=== PATIENT | female | born 1955 | race Caucasian/White ===

== ENCOUNTER 2020-03-24 08:30 | Day surgery (SDC) | payer MEDICARE ==
--- NOTE | 2020-03-18 16:57 | NUR ---
KHLOE WAS HERE TODAY TO PRE ADMIT FOR LT TKA ON 03/24/20. HE HAD HER RIGHT KNEE REPLACED IN 2018. SHE HAS A FOUR WHEELED WALKER THAT SHE WILL BRING THE DAY OF SURGERY. SHE HAS A WALK IN SHOWER BUT NO HAND HELD SHOWER HEAD. SHE REPORTS THAT THE TOILETS IN HER HOUSE ARE HIGHER THAN AVERAGE SO SHE DOESNT ANTICIPATE NEEDING A SEAT RISER. THERE ARE 2 STEPS LEADING UP TO HER HOUSE, SHE DOES HAVE STAIR IN HER HOUSE BUT SHE WILL BE STAYING ON THE BOTTOM FLOOR AND WILL NOT BE CLIMBING STAIRS INITIALLY. SHE HAS TWO DAUGHTERS THAT WILL BE TAKING HER HOME AND THEY WILL BE AVAILABLE TO TAKE HER TO POST OP APPOINTMENTS. SHE HAS MADE CONTACT WITH PHYSICAL THERAPY AND HAS SCHEDULED HER FIRST TWO APPOINTMENTS
[~2020-03-24] VITALS: Ht 165.1 cm; Wt 99.8 kg
[~2020-03-24 08:30] MED LIST: ACIDOPHILUS1 EACH PO; ATIVAN1 MG PO; CALCIUM-MAG-ZI1 EACH PO; CIPRO500 MG PO; CRANBERRY300 MG PO; DILAUDID4 MG PO; EFFEXOR XR150 MG PO; ESTER-C 1,0001 EACH PO; FISH OIL 1,0001 EAC1 PO; FLEXERIL5 MG PO; HYDROCODON-ACE1 EA11 PO; HYDROCODON-ACE1 EAC6 PO; LIPITOR10 MG PO; NORCO 7.5-3251 EACH PO; NORTRIPTYLINE H10 MG PO; PRILOSEC OTC20 MG PO; PRILOSEC20 MG PO; STOOL SOFTENER100 M1 PO; SUDAFED30 MG PO; TRIAMTERENE-HC1 EAC1 PO; TYLENOL EXTRA500 MG PO; ULTRAM50 MG PO; WOMEN'S ONE DA1 EACH PO; XARELTO10 MG PO; ZOLOFT100 MG PO
--- NOTE | 2020-03-24 09:30 | NUR ---
PATIENT IS UP TO THE BATHROOM. SHE AMBULATES WELL, WHILE PUSHING HER IV POLE. SHE IS BACK IN BED. KNEES OF STRETCHER ARE BENT FOR HER COMFORT. CALL LIGHT IS WITHIN REACH. NOZIN NASAL SWABS COMPLETE. CHG ORAL RINSE ALSO COMPLETE.
--- NOTE | 2020-03-24 10:36 | NUR ---
PT ALERT, ORIENTED AND SUPPORTED BY HER DAUGHTER GLENN. PT HAD HER R KNEE REPLACED IN 2018. PT SEEMS PREPARED, WAITING FOR GERRY REAVES. ALL QUESTIONS ASKED WERE ANSWERED, PT REQUESTED PRAYER, WILL FOLLOW NEEDED
[2020-03-24] MEDS ORDERED: DICLOFENAC SODI75 MG PO (12:35)
[2020-03-24] MEDS ORDERED: XARELTO10 MG PO (12:35)
[2020-03-24] MEDS ORDERED: GABAPENTIN300 MG PO (12:35)
[2020-03-24] MEDS ORDERED: OXYCODONE HCL5 MG PO (12:37)
--- NOTE | 2020-03-24 12:54 | NUR ---
03/24/20 1254 Geno Lindsay 1228 PT ARRIVED IN PACU SLEEPY WITH OPA IN PLACE. CHIN LIFT HELD TO KEEP AIRWAY OPEN. 1231 PT REACTIVE. OPA REMOVED. DENNISE HOSE PLACED ON L KNEE WITH MARIE DRSG CDI. GREEN LITE FLASING ON MARIE. ON QUE SET AT 4ML/HR FROM SURGERY. CRYO CUFF PLACED PER DR ORDERS. 1245 C/O FEELING COLD. WARM BLANKETS GIVEN. OXYGEN DROPPED TO 88% ON RA. ENCOURAGED COUGH, DEEP BREATHING. INCREASING SATS TO 94%.
--- NOTE | 2020-03-24 13:21 | NUR ---
SOUP AND SANDWICH ORDERED FROM DIETARY. ICED WATER GIVEN. DAUGHTER IS AT THE BEDSIDE. CALL LIGHT IS WITHIN REACH.
--- NOTE | 2020-03-24 14:02 | NUR ---
SOUP AND SANDWICH ARRIVES AND PATIENT IS SITTING UP IN BED, EATING. MORE ICED WATER GIVEN.
--- NOTE | 2020-03-24 14:35 | NUR ---
PATIENT FINISHES HER SOUP AND SANDWICH. PHYSICAL THERAPY, HIRO, IS HERE AND IN THE PATIENT'S ROOM.
--- NOTE | 2020-03-24 14:59 | NUR ---
PATIENT IS TAKEN OUT OF THIS DEPARTMENT VIA WHEELCHAIR WITH PHYSICAL THERAPIST, IHRO.
--- NOTE | 2020-03-24 15:09 | NUR ---
PATIENT RETURNS WITH HIRO. CALL TO DR CRISTINA REGARDING PATIENT'S STATUS AND HE GIVES A VERBAL ORDER FOR DISCHARGE. PATIENT IS UP TO THE BATHROOM WITH FWW AND SHE DOES WELL WITH THAT.
--- NOTE | 2020-03-24 15:55 | NUR ---
LE 1535: DISCHARGE INSTRUCTIONS ARE GIVEN AND PATIENT AND DAUGHTER VERBALIZE UNDERSTANDING. CRYO CUFF SENT WITH THE PATIENT. PATIENT TRANSFERS HERSELF TO WHEELCHAIR AND THEN TO PERSONAL VEHICLE AND SHE TOLERATES THAT WELL.
--- NOTE | 2020-03-26 10:20 | OR ---
[facility] [address] [facility] [place], [place] [address] Signed DATE OF OPERATION: 03/24/2020 SURGEON: Dhara Hernandez MD PREOPERATIVE DIAGNOSIS: Degenerative joint disease, left knee. POSTOPERATIVE DIAGNOSIS: Degenerative joint disease, left knee. PROCEDURE PERFORMED: Left total knee arthroplasty with Sergio. TELEVISION REPAIRER: SAIDA Alamo. ANESTHESIA: General. BLOOD LOSS: 175 mL. TOURNIQUET TIME: Zero. IMPLANTS: Mau Triathlon size 3 femur, 2 tibia, 11 mm insert, and 29 mm patella. BRIEF HISTORY: Shamir is a 64-year-old female with progressive worsening of osteoarthritis. This is nonresponsive to the means of treatment. Risks and benefits of operative treatment discussed with her. She elected to proceed. DESCRIPTION OF PROCEDURE: Once consent was obtained, she was taken to the operating room. After adequate anesthesia, she was placed on operating room table. A hip bump was placed. The leg was then prepped and draped in a standard sterile fashion. Standard anterior approach through a straight incision was taken through skin and subcutaneous tissue. A subvastus approach was taken through the fascia. We elevated the MCL around the posteromedial corner. The infrapatellar fat pad was excised. Anterior horns of menisci were Electronically Signed By: DHARA HERNANDEZ MD 03/26/20 1020 PATIENT NAME: SHAMIR HOGUE OPERATIVE REPORT DATE OF : 57 REPORT #: [id number] PHYSICIAN: DHARA HERNANDEZ MD PCP: EMILIE BUSTILLO PAC REPORT IS CONFIDENTIAL AND NOT TO BE RELEASED WITHOUT AUTHORIZATION [facility] [address] [place], [place] [address] Signed transected as was the ACL. The knee was flexed and the checkpoints for the Sergio system were installed on the medial femoral condyle and proximal tibia. The computer arrays for the femur were placed in the medial femoral condyle and the computer array for the tibia was placed percutaneously 1 handsbreadth below the tibial tubercle. This was done percutaneously. The leg was then registered with the computer and the fine checkpoints inside the knee were all registered with the computer. Once this was accomplished, brought in the Sergio robot and the straight cuts including the tibia anterior posterior cuts and the anterior chamfer were made. The bone fragments were removed. The saw was switched to the angled saw on the distal and posterior chamfer cuts were made. The remaining bone and osteophytes were removed. The posterior osteophytes of the femur were removed. No posterior release performed. The trials were then positioned. Knee was taken through range of motion and found to be stable. It was more stable with a 10 mm poly, then it was with a 9 mm poly and we left the 10 in position. The patella was cut sized and drilled for a 29 symmetric patella. The distal femoral drill holes were made and the tibia was finished using the keel punch. Due to the softness of bone, we elected to go with a hybrid prosthesis. The bone was pulse lavaged, packed with a dry Ray-Mily. The cement was mixed. When it reached proper consistency, it was placed on the patella and the tibia as well as 2 implants. The tibia was impacted into position, first followed by the polyethylene. The excess cement was removed. The femur was impacted in position. The knee was extended and nicely loaded. The patella was clamped into position, again any remaining overflow was removed. The cement was allowed to harden. Once it was hardened sufficiently, the knee was taken through range of motion and found to be quite stable. The On-Q pain pump was placed percutaneously into the adductor canal from the suprapatellar pouch. The wound was copiously irrigated throughout the procedure. A total of 3 L antibiotic irrigation was used. The periarticular soft tissues were injected with 98 mL ropivacaine and Toradol mixture. The arthrotomy was then closed using #1 Ethibond, #2 StrataFix. The subcutaneous tissue was closed using 0 Stratafix and the skin with nisreen. The 2 distal stab incisions were closed using Steri-Strips. The wound was dressed with a MARIE wound VAC dressing and Gorge wrap. She was awakened and taken to the recovery room in satisfactory condition. All sponge, needle, and instrument counts were correct. Dhara Hernandez MD BA/MODL /[id number] Electronically Signed By: DHARA HERNANDEZ MD 03/26/20 1020 PATIENT NAME: SHAMIR HOGUE OPERATIVE REPORT DATE OF : 57 REPORT #: [id number] PHYSICIAN: DHARA HERNANDEZ MD PCP: EMILIE BUSTILLO PAC REPORT IS CONFIDENTIAL AND NOT TO BE RELEASED WITHOUT AUTHORIZATION [address] [address] Signed Copies: ~ Electronically Signed By: DHARA HERNANDEZ MD 03/26/20 1020 PATIENT NAME: SHAMIR HOGUE OPERATIVE REPORT DATE OF : 57 REPORT #: [id number] PHYSICIAN: DHARA HERNANDEZ MD PCP: EMILIE BUSTILLO PAC REPORT IS CONFIDENTIAL AND NOT TO BE RELEASED WITHOUT AUTHORIZATION
== END 2020-03-24 15:40 | disposition home or self-care (01) ==
LOC: DS 08:30
PROVIDERS: ATTEND Specialist
PROC: 8E0YXBZ Computer Assisted Procedure of Lower Extremity (ICD-10-PCS; 2020-03-24)
PROC: 0SRD0J9 Replacement of Left Knee Joint with Synthetic Substitute, Cemented, Open Approach (ICD-10-PCS; principal; 2020-03-24 10:00)
DX: M17.12 Unilateral primary osteoarthritis, left knee (principal); M25.762 Osteophyte, left knee; I10 Essential (primary) hypertension; K21.9 Gastro-esophageal reflux disease without esophagitis; G89.29 Other chronic pain; M54.5 Low back pain; Z79.899 Other long term (current) drug therapy; Z87.891 Personal history of nicotine dependence; Z98.890 Other specified postprocedural states
CPT/HCPCS: 01402; 64447; 64448; 64450; 76942; 97110; 97116; 97161; C1713; C1776; J0690; J1100; J1885; J2001; J2250; J2405; J2704; J2795; J3010; J7121

== ENCOUNTER 2020-10-11 06:15 | Day surgery (SDC) | payer MEDICARE ==
[~2020-10-11] VITALS: Ht 165.1 cm; Wt 97.7 kg
[~2020-10-11 06:15] MED LIST changes: +DICLOFENAC SODI75 MG PO; +GABAPENTIN300 MG PO; +OXYCODONE HCL5 MG PO
--- NOTE | 2020-10-11 08:26 | NUR ---
10/11/20 0826 Geno Lindsay 0804 PT ARRIVED IN PACU SLEEPY WITH NO C/O'S. ABD SOFT. 0815 DR AT BEDSIDE TALKING TO PT. 0825 RESTING. REU.
--- NOTE | 2020-10-11 09:19 | NUR ---
PT IS ALERT, ORIENTED AND SUPPORTED BY HER DAUGHTER. PT SEEMS TO COPE WITH PREP APPROPRIATELY.ALL QUESTIONS ASKED ANSWERED. PT REQUESTED PRAYER, WILL FOLLOW NEEDED
--- NOTE | 2020-10-11 17:00 | OR ---
[facility] [address] [place], [place] [address] Signed DATE OF OPERATION: 10/11/2020 SURGEON: Adan Mitchell MD PREOPERATIVE DIAGNOSIS: Surveillance colonoscopy, asymptomatic, negative family history of colon cancer. POSTOPERATIVE DIAGNOSIS: Mild, diffuse inflammation with edema, no ulceration or neoplasm. PROCEDURE: Total colonoscopy to cecum with random biopsies. ANESTHESIA: Intravenous sedation, fentanyl 150 mcg ad Versed 8 mg. INDICATIONS: This 65-year-old white woman is a patient of BALAJI Walls. She is here for surveillance colonoscopy. She has undergone colonoscopy in [place] by a provider there at least several times in the past with no findings of concern. She currently has no symptoms of bleeding, diarrhea, or constipation and no family history of colon cancer. She has undergone prior bilateral total knee replacement and was given preoperative antibiotic Ancef prior to colonoscopy today. The risks of bleeding, infection, and perforation related to colonoscopy were reviewed with her, she understands and wished to proceed. FINDINGS: The prep was good. Complete colonoscopy was undertaken of the cecum. There was mild, diffuse inflammation and edema without signs of true colitis per se. This may be bowel prep related. Biopsies were taken throughout to assess for microscopic or lymphocytic colitis. DESCRIPTION OF PROCEDURE: The patient was brought to the endoscopy suite and placed in lateral decubitus position given intravenous sedation to the point of slurred speech and nystagmus. Digital rectal examination was normal. Full cardiopulmonary monitoring was maintained. An Olympus video colonoscope was passed into the rectum and manipulated throughout the colon, ultimately intubating the cecum. The ileocecal valve and appendiceal orifice were normal. Throughout the scope, the mucosa of the colon was somewhat edematous and Electronically Signed By: ADAN MITCHELL MD 10/11/20 1700 PATIENT NAME: SHAMIR HOGUE OPERATIVE REPORT DATE OF : 57 REPORT #: [id number] PHYSICIAN: ADAN MITCHELL MD PCP: EMILIE BUSTILLO PAC REPORT IS CONFIDENTIAL AND NOT TO BE RELEASED WITHOUT AUTHORIZATION [facility] [address] [place], [place] [address] Signed mildly inflamed without sign of ulceration or other stigmata of most types of colitis. The scope was carefully withdrawn. Biopsies taken of the cecum, right colon, left colon, sigmoid, and rectum. Retroflexed view was normal as well. There was no evidence of polyps or diverticulosis. She was taken to the recovery room at the conclusion of the procedure, having suffered no complication. CONCLUDING DIAGNOSIS: Mild nonspecific inflammation, possibly bowel prep related. PLAN: Recommend repeat colonoscopy in 10 years or sooner if symptoms should occur. I will check pathology report to assess if there is colitis. She will return to the ongoing care of BALAJI Walls as well. MD JACOBO Fraser/YELENA /[id number] Copies: ~ Electronically Signed By: ADAN MITCHELL MD 10/11/20 1700 PATIENT NAME: SHAMIR HOGUE OPERATIVE REPORT DATE OF : 57 REPORT #: [id number] PHYSICIAN: ADAN MITCHELL MD PCP: EMILIE BUSTILLO PAC REPORT IS CONFIDENTIAL AND NOT TO BE RELEASED WITHOUT AUTHORIZATION
--- NOTE | 2020-10-13 14:11 | PATH ---
[facility] [address] [facility] [place], [place] [address] Signed SPECIMEN(S): A CECUM SPECIMEN(S): B ASCENDING SPECIMEN(S): C SIGMOID SPECIMEN(S): D RECTUM SPECIMEN SOURCE: A. CECUM B. ASCENDING C. SIGMOID D. RECTUM CLINICAL HISTORY: Surveillance colonoscopy; history of hemorrhoids. Postop diagnosis: Mild inflammation MICROSCOPIC DESCRIPTION: Histologic sections of all submitted blocks are examined by light microscopy. These findings, together with the gross examination, support the pathologic diagnosis. FINAL PATHOLOGIC DIAGNOSIS: A. Cecum, biopsy: - Benign colonic mucosa with slightly increased lamina propria chronic inflammation (nonspecific). B. Ascending colon, biopsy: - Benign colonic mucosa with mild reactive epithelial features and slightly increased active mucosal inflammation. C. Sigmoid colon, biopsy: - Benign colonic mucosa with mild reactive epithelial features and slightly increased active mucosal inflammation. D. Rectum, biopsy: - Benign colonic mucosa, negative for specific diagnostic abnormality. COMMENT: The increased neutrophils and lymphocytes noted in specimens B and C with associated mild reactive epithelial features are somewhat non-specific but could be seen in association with bowel preparation related changes, medication effect, infection, or other causes. Clinical correlation is requested. JVR:cml:[id number] GROSS DESCRIPTION: PATIENT NAME: SHAMIR FARRAR PATHOLOGY DATE OF : 57 REPORT #: [id number] PHYSICIAN: FRANCES TOBIAS PCP: EMILIE BUSTILLO PAC REPORT IS CONFIDENTIAL AND NOT TO BE RELEASED WITHOUT AUTHORIZATION [facility] [address] [place], [place] [address] Signed Four specimens are received in four containers, labeled "Leni Sarabia," A. The specimen, labeled " Farrar Shamir, #1," and designated on the requisition "cecum biopsy," is received in formalin and consists of three shah soft tissue fragments that measure 0.2 to 0.4 cm in greatest dimension. The specimen is entirely submitted in cassette (A1). B. The specimen, labeled " Farrar Shamir, #2," and designated on the requisition "ascending/right biopsy," is received in formalin and consists of three shah soft tissue fragments that measure 0.2 to 0.3 cm in greatest dimension. The specimen is entirely submitted in cassette (B1). C. The specimen, labeled " Farrar Shamir, #3," and designated on the requisition "sigmoid biopsies," is received in formalin and consists of two shah soft tissue fragments that measure 0.4 to 0.5 cm in greatest dimension. The specimen is entirely submitted in cassette (C1). D. The specimen, labeled " Leni Sarabia, #4," and designated on the requisition "rectum biopsy," is received in formalin and consists of two shah soft tissue fragments that measure 0.3 and 0.3 cm in greatest dimension. The specimen is entirely submitted in cassette (D1). FB (under the direct supervision of a pathologist) The Gross Description was prepared using a voice recognition system. The report was reviewed for accuracy; however, sound-alike word errors, addition and/or deletions may occur. If there is any question about this report, please contact Client Services. PERFORMING LABORATORY: The technical component was performed by [facility] [employer], [address] [place] [id number] (Manager Simulation: Beverly Chase MD; CLIA# [id number]). Professional interpretation was performed by [employer], [facility], [address] [place] [address] [address] [place] [address]. Diagnostician: Curtis Pedro MD Pathologist Electronically Signed 10/13/2020 Copies: ~ PATIENT NAME: SHAMIR FARRAR PATHOLOGY DATE OF : 57 REPORT #: [id number] PHYSICIAN: FRANCES TOBIAS PCP: EMILIE BUSTILLO PAC REPORT IS CONFIDENTIAL AND NOT TO BE RELEASED WITHOUT AUTHORIZATION
== END 2020-10-11 08:45 | disposition home or self-care (01) ==
LOC: OPS 06:15 → DS 06:15 → OPS 06:45 → DS 07:30 → OPS 08:45
PROVIDERS: ATTEND Surgery
PROC: 0DBE8ZZ Excision of Large Intestine, Via Natural or Artificial Opening Endoscopic (ICD-10-PCS; principal; 2020-10-11 06:45)
DX: Z12.11 Encounter for screening for malignant neoplasm of colon (principal); K52.9 Noninfective gastroenteritis and colitis, unspecified; E66.9 Obesity, unspecified; I10 Essential (primary) hypertension; Z87.891 Personal history of nicotine dependence; Z68.35 Body mass index [BMI] 35.0-35.9, adult; Z96.653 Presence of artificial knee joint, bilateral
CPT/HCPCS: 99153; G0500; J2250; J3010; J7121

== ENCOUNTER 2024-01-24 04:58 | Emergency (ER) | payer MEDICARE ==
[~2024-01-24] VITALS: Ht 165.1 cm; Wt 92.0 kg
[~2024-01-24 04:58] MED LIST changes: +CYCLOBENZAPRINE10 MG PO; -FLEXERIL5 MG PO
--- OUTSIDE RECORDS SUMMARY | 2024-01-24 04:59 | XMS ---
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 There are no care providers on record at this time. Emelyn has no Care Guidelines for this patient. Opal VISIT COUNT (12 MO.) 1 FRAN Hernandez TOTAL 1 NOTE: Visits indicate total known visits. ED/UCC VISIT TRACKING (12 MO.) 01/24/2024 04:58 FRAN Wu [place] TYPE: Emergency COMPLAINT: - ALTERED LOC INPATIENT VISIT TRACKING (12 MO.) [facility]2023 [facility]: Surgery DIAGNOSES: - Encounter for other preprocedural examination - Other specified postprocedural states [email or web address]
[2024-01-24 05:19] LABS: HEMATOCRIT 39.9 % (35.0-50.0); HEMOGLOBIN 13.4 g/dL (12.0-18.0); MCV 92.6 fl (81-99)
[2024-01-24 05:21] LABS: BILIRUBIN, URINE NEGATIVE (negative); BLOOD/HGB, URINE NEGATIVE (Negative); KETONE, URINE NEGATIVE (Negative); LEUK ESTERASE, URINE SMALL (negative); NITRITE, URINE POSITIVE (negative); PH, URINE 6.5 (5-7)
[2024-01-24 05:21] LABS: BASOPHILS 0.9 % (0-2); EOSINOPHILS 1.4 % (0-6); LYMPHOCYTES 17.5 % (24-44); MCH 31.2 (27-36); MCHC 33.6 g/dl (30-36); MONOCYTES 4.4 % (0-12); NEUTROPHILS 75.8 % (39-80); PLATELET COUNT 463 K/uL (140-440); RDW 14.6 (10.5-15.0)
[2024-01-24 05:28] LABS: EPITHELIAL CELLS, URINE SQUAMOUS 4+ /lpf (0-1+)
[2024-01-24 05:29] LABS: BACTERIA, URINE 4+ /hpf (negative); CASTS, URINE NONE SEEN \\lpf; COLLECTION TYPE, URINE CLEAN CATCH; CRYSTALS, URINE NONE SEEN (0-1+); RED BLOOD CELLS, URINE 0-1 /hpf (0-5); REFLEX CULTURE, URINE No (No); WHITE BLOOD CELLS, URINE 21-40 /HPF (0-5)
[2024-01-24 05:36] LABS: AMPHETAMINES, URINE NEGATIVE (NEGATIVE); BARBITURATES, URINE NEGATIVE (NEGATIVE); BENZODIAZEPINE, URINE NEGATIVE (NEGATIVE); BUPRENORPHINE, URINE NEGATIVE (NEGATIVE); CANNABINOID, URINE NEGATIVE (NEGATIVE); COCAINE, URINE NEGATIVE (NEGATIVE); ECSTASY, URINE NEGATIVE (NEGATIVE); FENTANYL, URINE NEGATIVE (NEGATIVE); METHADONE, URINE NEGATIVE (NEGATIVE); OPIATES, URINE POSITIVE (NEGATIVE); OXYCODONE, URINE NEGATIVE (NEGATIVE); PHENCYCLIDINE, URINE NEGATIVE (NEGATIVE)
[2024-01-24 06:14] LABS: ALBUMIN 3.8 g/dL (3.4-5.0); ALBUMIN/GLOBULIN RATIO 1.12 (1.1-2.4); ALCOHOL, MEDICAL <3 ng/dL (<3); ALKALINE PHOSPHATASE 83 U/L (46-116); ALT (SGPT) 28 U/L (14-59); ANION GAP 14.1 (7-21); AST (SGOT) 16 U/L (15-37); BILIRUBIN, TOTAL 0.3 ng/dL (0.2-1.0); BUN/CREATININE RATIO 14.67 (6.0-28.6); CALCIUM 9.6 mg/dL (8.5-10.1); CARBON DIOXIDE 26 mmol/L (21-32); CHLORIDE 96 mmol/L (98-107); CREATININE, SERUM 1.09 mg/dL (0.55-1.02); GLOMERULAR FILTRATION RATE,EST 56 mL/min (>60); POTASSIUM 3.1 mmol/L (3.5-5.1); PROTEIN, TOTAL 7.2 g/dL (6.4-8.2); UREA NITROGEN 16 mg/dL (7-18)
[2024-01-24 06:15] LABS: PARTIAL THROMBOPLASTIN TIME 32.9 Sec (22.9-41.3)
[2024-01-24] MEDS ORDERED: CEFTRIAXONE/SODIUM CHLORIDE 2 GM/100 ML PIGGYBACK IV ONE (06:15)
[2024-01-24 06:17] LABS: INR 1.01 (0.80-1.30); PROTIME 12.6 Sec (11.2-14.2)
[2024-01-24] MEDS ORDERED: HYDROCODON-ACE1 EA10 PO (06:17)
[2024-01-24] MEDS ORDERED: SUDOGEST30 MG PO (06:19)
[2024-01-24] MEDS ORDERED: CEPHALEXIN500 M1 PO (06:39)
[2024-01-24] MEDS ORDERED: K-TAB ER20 MEQ PO (06:40)
[2024-01-24] MEDS ORDERED: CEPHALEXIN MONOHYDRATE 500 MG HOME.PACK PO ONE (06:45)
[2024-01-24 07:00] VITALS: BP 150/93
--- NOTE | 2024-01-24 13:46 | EKG ---
[facility] [address] [facility] [place] [address] Signed Normal sinus rhythm Normal ECG When compared with ECG of 09-MAR-2020 10:01, No significant change was found Confirmed by Mulu Ram MD () on 01/24/2024 1:46:06 PM Electronically Signed By: MULU RAM MD 01/24/24 1346 PATIENT NAME: SHAMIR HOGUE Electrocardiogram DATE OF : 57 PHYSICIAN: MULU RAM MD REPORT #: [id number] REPORT IS CONFIDENTIAL AND NOT TO BE RELEASED WITHOUT AUTHORIZATION
== END 2024-01-24 07:00 | disposition home or self-care (01) ==
LOC: ED 04:58
PROVIDERS: Emergency Medicine
DX: R41.0 Disorientation, unspecified (principal); R51.9 Headache, unspecified; N39.0 Urinary tract infection, site not specified; F17.200 Nicotine dependence, unspecified, uncomplicated; Z79.899 Other long term (current) drug therapy; Z88.5 Allergy status to narcotic agent
CPT/HCPCS: 36415; 70450; 70496; 70498; 71045; 80053; 80307; 81001; 85025; 85610; 85730; 93005; 93010; 99285-25; A9270; G0480; J0696; Q9967

== ENCOUNTER 2024-04-01 14:32 | Emergency (ER) | payer MEDICARE ==
[~2024-04-01] VITALS: Ht 165.1 cm; Wt 97.8 kg
[~2024-04-01 14:32] MED LIST changes: +CEPHALEXIN500 M1 PO; +HYDROCODON-ACE1 EA10 PO; +K-TAB ER20 MEQ PO; +SUDOGEST30 MG PO
[2024-04-01] MEDS ORDERED: TRAZODONE HCL100 MG PO (14:45)
[2024-04-01] MEDS ORDERED: ATORVASTATIN CA40 MG PO (14:46)
[2024-04-01 15:00] LABS: BILIRUBIN, URINE NEGATIVE (negative); BLOOD/HGB, URINE NEGATIVE (Negative); KETONE, URINE NEGATIVE (Negative); LEUK ESTERASE, URINE NEGATIVE (negative); NITRITE, URINE NEGATIVE (negative); PH, URINE 6.5 (5-7)
[2024-04-01 15:10] LABS: BACTERIA, URINE NONE SEEN /hpf (negative); CASTS, URINE NONE SEEN \\lpf; CRYSTALS, URINE NONE SEEN (0-1+); EPITHELIAL CELLS, URINE TRANSITIONAL 1+ /lpf (0-1+); RED BLOOD CELLS, URINE 0-1 /hpf (0-5)
[2024-04-01 15:11] LABS: COLLECTION TYPE, URINE CLEAN CATCH; REFLEX CULTURE, URINE No (No)
[2024-04-01 15:12] LABS: BASOPHILS 1.1 % (0-2); EOSINOPHILS 2.7 % (0-6); HEMATOCRIT 37.5 % (35.0-50.0); HEMOGLOBIN 13.2 g/dL (12.0-18.0); LYMPHOCYTES 20.1 % (24-44); MCH 31.7 (27-36); MCHC 35.2 g/dl (30-36); MCV 90.1 fl (81-99); MONOCYTES 6.8 % (0-12); NEUTROPHILS 69.3 % (39-80); PLATELET COUNT 662 K/uL (140-440); RBC 4.17 M/ul (4.3-5.7); RDW 14.3 (10.5-15.0)
[2024-04-01] MEDS ORDERED: LORazepam 2 MG/ML VIAL IV ONE (15:15)
[2024-04-01 15:27] LABS: ALBUMIN 3.8 g/dL (3.4-5.0); ALBUMIN/GLOBULIN RATIO 0.95 (1.1-2.4); ANION GAP 11.5 (7-21); BILIRUBIN, TOTAL 0.4 ng/dL (0.2-1.0); BUN/CREATININE RATIO 16.34 (6.0-28.6); CALCIUM 9.8 mg/dL (8.5-10.1); CREATININE, SERUM 1.04 mg/dL (0.55-1.02); POTASSIUM 2.5 mmol/L (3.5-5.1); PROTEIN, TOTAL 7.8 g/dL (6.4-8.2)
[2024-04-01] MEDS ORDERED: POTASSIUM CHLORIDE 20 MEQ in DEXTROSE 5% 250 ML IV SCH (16:15)
[2024-04-01] MEDS ORDERED: POTASSIUM CHLORIDE 10 MEQ TABCR PO ONE (16:15)
[2024-04-01 19:12] VITALS: BP 133/84
== END 2024-04-01 19:22 | disposition home or self-care (01) ==
LOC: ED 14:32
PROVIDERS: Emergency Medicine
DX: R41.0 Disorientation, unspecified (principal); I10 Essential (primary) hypertension; F17.200 Nicotine dependence, unspecified, uncomplicated; Z88.5 Allergy status to narcotic agent; Z79.899 Other long term (current) drug therapy; Z11.52 Encounter for screening for COVID-19
CPT/HCPCS: 36415; 51701; 70551; 80053; 81001; 85025; 99285-25; A9270; J2060; J3480; J7060; U0002